=== PATIENT | male | born 1965 | race Caucasian/White ===

== ENCOUNTER 2021-10-01 16:42 | Emergency (ER) | payer OTHER, SELFPAY ==
[2021-10-01 16:55] VITALS: BP 128/76; PULSE 92; RESP 18; TEMP 36.6; O2SAT 100
--- NOTE | 2021-10-01 17:26 | ED.GENADULT ---
HPI - General Adult General Chief complaint: Extremity Injury, Upper Stated complaint: Lt Elbow Pain/Irritation Time Seen by Provider: 10/01/21 17:17 Source: patient and RN notes reviewed Mode of arrival: ambulatory Limitations: no limitations History of Present Illness HPI narrative: Patient presents today complaining of swelling to his left elbow x2 weeks. Denies injury, pain, numbness or tingling in his arm or hand, or any additional symptoms. He is currently pain-free. He has tried no interventions prior to arrival. Smokes half pack per day. Chews 1 can of tobacco per day. [place]. complaint: Left elbow swelling Related Data Home Medications Medication Instructions Recorded Confirmed No Home Medications 10/01/21 10/01/21 Allergies Allergy/AdvReac Type Severity Reaction Status Date / Time No Known Allergies Allergy Verified 10/01/21 17:07 Review of Systems Review of Systems: CONSTITUTIONAL: Denies body aches, fever, chills, or sweats. EYES: Denies visual changes, redness, or discharge. ENT: Denies rhinorrhea, congestion, sore throat, or otalgia. CARDIOVASCULAR: Denies chest pain, palpitations, or edema. RESPIRATORY: Denies cough or dyspnea. GASTROINTESTINAL: Denies abdominal pain, nausea, vomiting, or diarrhea. GENITOURINARY: Denies dysuria or hematuria. SKIN: Denies rash, itching, or wounds. MUSCULOSKELETAL: Denies back pain, or myalgia. + Left elbow swelling NEUROLOGIC: Denies headache, numbness, tingling, or weakness. PSYCH: Denies depression or anxiety. [facility] Past Medical History Medical History (Updated 10/01/21 @ 17:30 by Karine Smith, [facility], ) Kidney stones Social History Social History (Updated 10/01/21 @ 17:31 by Karine Smith, [facility], ) Smoking packs per day: 0.5 Smoking cigarettes per day: 10.0 Smoking status: Current every day smoker Smokeless tobacco user: chewing tobacco Exam Narrative: GENERAL: Well-appearing, well-nourished, and in no acute distress. HEAD: Normocephalic, atraumatic. EYES: EOMI. No redness or drainage. Conjunctivae normal. ENT: Mucous membranes pink and moist. NECK: Normal AROM. CHEST: No respiratory distress. EXTREMITIES: Left elbow: Obvious moderate swelling of the olecranon bursa. No tenderness, erythema. Patient has full extension without pain. Full range of motion of the elbow. Distal sensation intact. Capillary refill normal. Radial pulse normal. No increased warmth. SKIN: Warm, dry, no rash. Capillary refill normal. Normal skin turgor. NEURO: No focal deficits. Alert and oriented x3. Gait steady. PSYCH: Normal affect. No signs of depression or anxiety. Course Course Level of Care: Express Care Visit Vital Signs Vital signs: Vital Signs Temperature 97.8 F 10/01/21 16:55 Pulse Rate 92 10/01/21 16:55 Respiratory Rate 18 10/01/21 16:55 Blood Pressure 128/76 10/01/21 16:55 Pulse Oximetry 100 10/01/21 16:55 Temperature 97.8 F 10/01/21 16:55 Pulse Rate 92 10/01/21 16:55 Respiratory Rate 18 10/01/21 16:55 Blood Pressure 128/76 10/01/21 16:55 Pulse Oximetry 100 10/01/21 16:55 Reviewed. Pt has been instructed to follow up with his PCP regarding his elevated blood pressure today. Medical Decision Making Differential Diagnosis Differential Diagnosis: Olecranon bursitis, elbow effusion, cellulitis, septic joint Vital Signs Vital Signs: Vital Signs Temperature 97.8 F 10/01/21 16:55 Pulse Rate 92 10/01/21 16:55 Respiratory Rate 18 10/01/21 16:55 Blood Pressure 128/76 10/01/21 16:55 Pulse Oximetry 100 10/01/21 16:55 Temperature 97.8 F 10/01/21 16:55 Pulse Rate 92 10/01/21 16:55 Respiratory Rate 18 10/01/21 16:55 Blood Pressure 128/76 10/01/21 16:55 Pulse Oximetry 100 10/01/21 16:55 Critical Care Time Critical Care Time Critical Care Time: No Discharge Plan Discharge Clinical Impression: Olecranon bur
== END 2021-10-01 17:29 | disposition home or self-care (01) ==
PROVIDERS: Emergency Provider Nurse Practitioner
DX: M70.22 Olecranon bursitis, left elbow (principal); F17.210 Nicotine dependence, cigarettes, uncomplicated; F17.220 Nicotine dependence, chewing tobacco, uncomplicated
CPT/HCPCS: 99202; G0463